=== PATIENT | female | born 1945 | race Caucasian/White ===

== ENCOUNTER 2017-08-18 11:12 | Inpatient (IN) | payer OTHER ==
[~2017-08-18] VITALS: Ht 152.4 cm; Wt 71.7 kg
[~2017-08-18 11:12] MED LIST: CORTEF5 MG PO; CRESTOR20 MG PO; EVISTA60 MG PO; OSELB75 PO; SYNTHROID50 MCG PO
[2017-08-18 11:13] VITALS: BP 118/66
[2017-08-18 11:37] LABS: ABSOLUTE NEUTROPHILS 6.8 thou/uL (1.4-8.2); BASOPHILS 0.3 % (0.0-2.0); EOSINOPHILS 3.2 % (0.0-3.0); HEMATOCRIT 43.6 % (37.0-47.0); HEMOGLOBIN 14.5 gm/dL (12.0-15.0); LYMPHOCYTES 8.7 % (24.0-44.0); MCH 30.2 pg (26.0-34.0); MCHC 33.3 g/dL (28.0-37.0); MCV 90.7 fL (80.0-100.0); MONOCYTES 6.3 % (1.0-8.0); PLATELET COUNT 243 thou/uL (150-400); POLYS 81.5 % (36.0-66.0); RBC 4.81 mil/uL (4.20-5.00); RDW 15.4 % (10.5-14.5); WBC 8.4 thou/uL (4.0-11.0)
[2017-08-18 11:50] LABS: CALCIUM 8.4 mg/dL (8.5-10.1); POTASSIUM 3.8 mmol/L (3.5-5.1)
[2017-08-18 11:56] LABS: ALBUMIN 3.3 g/dL (3.4-5.0); TOTAL BILIRUBIN 0.8 mg/dL (<0.1-1.0); TOTAL PROTEIN 7.3 g/dL (6.4-8.2)
[2017-08-18 12:21] LABS: URINE BILIRUBIN NEGATIVE (Negative); URINE BLOOD NEGATIVE (Negative); URINE CLARITY CLEAR; URINE COLOR YELLOW; URINE GLUCOSE-RANDOM* NEGATIVE (Negative); URINE KETONES NEGATIVE (Negative); URINE LEUKOCYTES NEGATIVE (Negative); URINE NITRITE NEGATIVE (Negative); URINE PROTEIN (DIPSTICK) NEGATIVE (Negative); URINE SPECIFIC GRAVITY 1.015 (1.005-1.035); URINE UROBILINOGEN 0.2 E.U./dl (0.2-1.0)
[2017-08-18 20:54] VITALS: BP 86/41
[2017-08-18 21:19] VITALS: BP 96/52
[2017-08-19 04:00] VITALS: BP 99/52
[2017-08-19 06:18] LABS: CALCIUM 7.1 mg/dL (8.5-10.1); CREATININE 0.8 mg/dL (0.6-1.0); POTASSIUM 3.7 mmol/L (3.5-5.1)
[2017-08-19 06:21] LABS: HEMATOCRIT 37.6 % (37.0-47.0); MCH 30.6 pg (26.0-34.0); MCHC 33.1 g/dL (28.0-37.0); MCV 92.6 fL (80.0-100.0); RBC 4.06 mil/uL (4.20-5.00); RDW 15.8 % (10.5-14.5); WBC 6.5 thou/uL (4.0-11.0)
[2017-08-19 06:23] LABS: ALBUMIN 2.6 g/dL (3.4-5.0); MAGNESIUM 1.9 mg/dL (1.8-2.4)
[2017-08-19 06:24] LABS: HEMOGLOBIN 12.5 gm/dL (12.0-15.0)
[2017-08-19 10:24] VITALS: BP 111/55
[2017-08-19 19:15] VITALS: BP 136/59
[2017-08-20 04:00] VITALS: BP 126/61
[2017-08-20 08:00] VITALS: BP 151/72
[2017-08-20 15:39] VITALS: BP 151/72
== END 2017-08-20 18:06 | disposition home or self-care (01) | DRG 643 ==
LOC: ER 11:12 → 4N 17:08 → EROBS 17:08 → 4N 20:54 → ENTRNSPT 08-20 17:09 → 4N 08-20 18:06
PROVIDERS: Hospitalist; Physician Assistant
PROC: B54MZZA Ultrasonography of Right Upper Extremity Veins, Guidance (ICD-10-PCS; principal; 2017-08-18)
PROC: 05HD33Z Insertion of Infusion Device into Right Cephalic Vein, Percutaneous Approach (ICD-10-PCS; principal; 2017-08-18)
DX: E27.2 Addisonian crisis (principal); E43 Unspecified severe protein-calorie malnutrition; E23.0 Hypopituitarism; B34.9 Viral infection, unspecified; E86.0 Dehydration; M81.0 Age-related osteoporosis without current pathological fracture; E03.9 Hypothyroidism, unspecified; Z79.1 Long term (current) use of non-steroidal anti-inflammatories (NSAID); Z79.899 Other long term (current) drug therapy; Z88.5 Allergy status to narcotic agent; Z90.5 Acquired absence of kidney
CPT/HCPCS: 10790; 27000

== ENCOUNTER → 2018-09-21 | Outpatient (CLI) | payer OTHER | LOC: BC 04:15 | DX: Z12.31 Encounter for screening mammogram for malignant neoplasm of breast (principal); M81.0 Age-related osteoporosis without current pathological fracture; M85.89 Other specified disorders of bone density and structure, multiple sites; Z78.0 Asymptomatic menopausal state ==

== ENCOUNTER 2019-01-03 11:24 | Inpatient (IN) | payer OTHER ==
[~2019-01-03] VITALS: Ht 152.4 cm; Wt 72.6 kg
--- NOTE | ~2019-01-03 | HC ---
[facility] [place] [address] CONSULTATION Name: JETHRO ESTRELLA Room #: 364-P [facility] IN ..#: [id number] Admission: 01/03/19 ������������������ Attend Phys: Brigette Hendricks Discharge: ������������������ Date of : 41 Report #: [id number] THIS REPORT FOR: //name// CC: Brigette Tangen Jannette DATE OF SERVICE: 01/04/2019 HISTORY OF PRESENT ILLNESS: The patient is a 73-year-old white female admitted with some slurring of speech and some left-sided weakness. She notes issues with some visual problems on the left. CT scan showed decreased attenuation right parietal area. An MRI confirmed a right temporoparietal acute/subacute infarct. We are seeing her in rehabilitation medicine consultation. 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 She had a pituitary tumor rupture in 1994. MEDICATIONS: Please see the full medication listing. This includes vitamins, herbals, and supplements per report. ALLERGIES: CODEINE. HABITS: Former tobacco smoker for 10 years, quit greater than a year ago. No history of alcohol abuse. SOCIAL HISTORY: Lives with her , house 2 steps in. Did not utilize gait aids. She is retired and could be of assistance. REVIEW OF SYSTEMS: No current complaints of chest pain, shortness of breath or abdominal discomfort. She has a history of urinary stress incontinence. She has some shoulder issues of the left shoulder with decreased range of motion with her prior surgery. PHYSICAL EXAMINATION: GENERAL: She is a pleasant, overweight 73-year-old white female, in no obvious distress. VITAL SIGNS: Last recorded temperature 98.3, pulse 91, respirations 18 and blood pressure 155/66. NEUROLOGIC: The patient is alert. Facies appeared symmetric except for the chronic right eye exophthalmus. She might have a slight depressed left nasolabial fold. She has left-sided visual field neglect to confrontation, which appears to be consistent with a homonymous hemianopsia. She does have some mild decreased left-sided attention. Reasonable strength of the left upper extremity with some mild decreased coordination. Left lower extremity appeared [address] [address] CONSULTATION Name: JETHRO ESTRELLA Room #: 364-P [facility] IN .R.#: [id number] Admission: 01/03/19 ������������������ Attend Phys: Brigette Hendricks Discharge: ������������������ Date of : 41 Report #: [id number] to have reasonable strength. She has functional range of motion of the right upper and right lower extremity, strength is a grade 4+/5, left upper extremity has decreased range of motion of that left shoulder, which is a chronic premorbid problem. Sensation does reveal decreased sensation to simultaneous stimulation in left upper and left lower extremity, although it appeared reasonably intact over the left face. ASSESSMENT: A 73-year-old white female with the following problem list: 1. Right temporoparietal acute/subacute infarct. 2. Visual field decrease with clinical evidence of a homonymous hemianopsia. 3. Left hemisensory deficit with some neglect. 4. Urinary tract infection. 5. Hyperlipidemia. 6. Adrenal insufficiency, steroids chronically. 7. Status post nephrectomy. 8. Osteoporosis. 9. Prior left total shoulder. PLAN: Neurology consulted. Therapy evaluations are underway. We would anticipate that the patient would benefit from a short acute in-hospital inpatient rehabilitation stay to work on maximizing her functional independence. Discussion with the patient's and daughters. We will be glad to follow along with you. ��������������������������������������������� ���������������������������������������� By: ��������������������������������������������� 0928 0046 Miguel A Richey MD /nt
--- NOTE | ~2019-01-03 | HC ---
[facility] [place] [address] CONSULTATION Name: JETHRO ESTRELLA Room #: 364-P [facility] IN .R.#: [id number] Admission: 01/03/19 ������������������ Attend Phys: Brigette Hendricks Discharge: ������������������ Date of : 43 Report #: [id number] THIS REPORT FOR: //name// CC: Brigette Bhatia DATE OF SERVICE: 01/03/2019 HISTORY OF PRESENT ILLNESS: This is a 73-year-old female patient who was discussed with Emergency Room physician, the hospitalist and the nurse taking care of this patient on the floor multiple times. She was seen with weakness and was noticed to have some weakness in the left upper extremity. She underwent a CT scan of the head, which demonstrated a stroke and Neurology consultation was requested. The patient herself denies any weakness and therefore it looks like she has a neglect. REVIEW OF SYSTEMS: Indicates she has no history of stroke, but she had a pituitary apoplexy for a long time and she has taken hormonal supplements since that time. She had some upper respiratory tract infection. She has adrenal insufficiency. A 14-point review of systems was carried out and this was her relevant 14-point review of systems. She also had a fall one time and she has metal in the left shoulder and both hips. She has a history of osteoporosis. PAST MEDICAL HISTORY: Negative for stroke. FAMILY HISTORY: Negative for early age stroke. SOCIAL HISTORY: She has prior history of smoking. PHYSICAL EXAMINATION: Indicates that she is alert and responsive. She can follow simple commands. Her speech to me looks unremarkable. Cranial nerve examination appears unremarkable. I do not think she has any marked hemianopsia. She gives reasonable strength on the left side. It is somewhat weaker on the left side as compared to the right side, but I do not think it is that much different. Her blood pressure is running about 152/104, respiration is 18, pulse is 97, temperature is 98.4. LABORATORY DATA: White count is somewhat high at 11.3 and urine is somewhat abnormal. I reviewed the patient's CT scan as well as MRI and this patient has finding consistent with right middle cerebral artery stroke, which will correlate with the patient's symptoms. IMPRESSION: This patient appears to have cerebrovascular accident. We saw her in Emergency Room and tried to see if she is a candidate for any intervention and unfortunately her stroke is more than 24 hours old and she is not a candidate for any intervention on the imaging study. [address] [address] CONSULTATION Name: MICHELA ESTRELLASURYA Blanco Room #: 364-P [facility] IN M.R.#: [id number] Admission: 01/03/19 ������������������ Attend Phys: Brigette Hendricks Discharge: ������������������ Date of : 41 Report #: [id number] I thought about putting her on aspirin and deep vein thrombosis prophylaxis with Lovenox. However, the problem is that this patient's MRI showed some small hemorrhage in the stroke. Therefore, we will not start the patient on aspirin or Lovenox. Main management is going to be the rehab and we need to check her extensively for any signs of atrial fibrillation or any source of embolization from the heart. We may even do MACKENZIE in this patient depending upon the echocardiogram report. More than 50 minutes of time was spent taking care of this patient today and majority of that time was spent counseling and coordinating her care. ��������������������������������������������� ���������������������������������������� By: ��������������������������������������������� 23 15 Kamari Nunes MD /nt
[2019-01-03 11:30] VITALS: BP 141/71
--- NOTE | 2019-01-03 11:41 | NUR ---
PT AMBULATED TO ROOM 2 WITH MANJULA BROWN AT THIS TIME.
[2019-01-03 12:31] LABS: ABSOLUTE NEUTROPHILS 7.1 thou/uL (1.4-8.2); BASOPHILS 0.8 % (0.0-2.0); EOSINOPHILS 2.7 % (0.0-3.0); HEMATOCRIT 44.9 % (37.0-47.0); LYMPHOCYTES 24.1 % (24.0-44.0); MCHC 33.4 g/dL (28.0-37.0); MCV 92.7 fL (80.0-100.0); MONOCYTES 9.9 % (1.0-8.0); PLATELET COUNT 259 thou/uL (150-400); POLYS 62.5 % (36.0-66.0); RBC 4.84 mil/uL (4.20-5.00); RDW 15.8 % (10.5-14.5); WBC 11.3 thou/uL (4.0-11.0)
[2019-01-03 12:32] LABS: URINE BILIRUBIN NEGATIVE (Negative); URINE BLOOD TRACE (Negative); URINE COLOR YELLOW; URINE GLUCOSE-RANDOM* NEGATIVE (Negative); URINE KETONES NEGATIVE (Negative); URINE PROTEIN (DIPSTICK) NEGATIVE (Negative); URINE UROBILINOGEN 0.2 E.U./dl (0.2-1.0)
[2019-01-03 12:39] LABS: URINE LEUKOCYTES-REFLEX 3+ (Negative); URINE NITRITE-REFLEX POSITIVE (Negative)
[2019-01-03 12:40] LABS: URINE CLARITY HAZY
[2019-01-03 12:41] LABS: AMP/METHAMP Negative (Negative); BARBITURATES Negative (Negative); BENZODIAZEPINES Negative (Negative); COCAINE Negative (Negative); METHADONE Negative (Negative); OPIATES Negative (Negative); PCP Negative (Negative)
[2019-01-03 12:50] LABS: TROPONIN-I <0.06 ng/mL (<0.06)
[2019-01-03 13:00] LABS: BACTERIA-REFLEX >30 Many /HPF (None Seen); CASTS None Seen /LPF (None Seen); SQUAMOUS None Seen /LPF (0-3); URINE RBC 0-2 Rare /HPF (0-2); URINE WBC-REFLEX 6-15 Few /HPF (0-5)
[2019-01-03 13:01] LABS: CRYSTALS None Seen /LPF (None Seen)
[2019-01-03 14:25] LABS: APTT 21.7 Seconds (24.5-32.8); INR 1.1; PROTIME 11.1 Seconds (9.3-11.4)
[2019-01-03 14:57] LABS: CALCIUM 8.5 mg/dL (8.5-10.1); CREATININE 0.9 mg/dL (0.6-1.0); POTASSIUM 3.6 mmol/L (3.5-5.1)
[2019-01-03 15:03] LABS: ALBUMIN 3.3 g/dL (3.4-5.0); MAGNESIUM 1.9 mg/dL (1.8-2.4); TOTAL BILIRUBIN 0.6 mg/dL (<0.1-1.0); TOTAL PROTEIN 7.3 g/dL (6.4-8.2)
[2019-01-03 15:16] VITALS: BP 140/77
[2019-01-03] MEDS ORDERED: CORTEF5 MG PO (15:34)
[2019-01-03] MEDS ORDERED: CENTRUM SILVER1 EAC4 PO (15:34)
[2019-01-03] MEDS ORDERED: VITAMIN D1000 UNI1 PO (15:35)
[2019-01-03] MEDS ORDERED: CALCIUM + VITA1 EACH PO (15:35)
[2019-01-03] MEDS ORDERED: CALCITONIN-SAL3.7 ML NASAL (15:38)
[2019-01-03] MEDS ORDERED: CRESTOR20 MG PO (15:39)
[2019-01-03 16:56] VITALS: BP 152/104
--- NOTE | 2019-01-03 18:41 | NUR ---
ASSUMED CARE OF PT ON ARRIVAL TO UNIT AT APPROX 1600. PT AOX4 ACCOMPANIED BY FAMILY. IN NO ACUTE DISTRESS. NIH 1 FOR NEGLECT. IV FLUIDS INFUSING PER ORDER. LOVENOX D/C'D BY PHYSICIAN DUE TO HEMMORHAGIC COMPONENT. SCD'S IN PLACE. SINUS ON TELEMETRY. WILL CONT TO MONITOR.
[2019-01-03 20:20] VITALS: BP 152/102
[2019-01-03 23:35] VITALS: BP 157/68
[2019-01-03 23:54] VITALS: BP 139/67
[2019-01-04 04:31] VITALS: BP 142/56
--- NOTE | 2019-01-04 05:19 | NUR ---
PT MAKING SLOW PROGRESS TOWARDS GOALS. NIH BRIEF SCORE 1. ONLY NOTABLE DEFICIT WAS LEFT SIDED NEGLECT. PT ABLE TO SEE MOTION IN RIGHT EYE BUT UNABLE TO SEE MOTION ON HER LEFT SIDE. PT ALSO AT TIMES UNABLE TO SEE THE FIRST WORD OF A SENTENCE. FOR EX: "THEY HEARD HIM SPEAK ON THE RADIO LAST NIGHT." PT WOULD SAY "I" HEARD HIM.....OR START WITH "HEARD." ONLY WHEN SCANNING THE PAGE BUT EITHER MOVING HER EYES OR TURNING HER HEAD WOULD SHE CORRECTLY SPEAK THE FIRST WORD OF THE SENTENCE. ALSO "CITY ATTORNEY." SHE STATED THAT SHE DOES NOT SEE THE "A" BUT DOES RECOGNIZE THAT THE WORD IS BASEBALL. SHE ALSO REPORTED THE SAME THING WITH "HUCKLEBERRY." SHE STATES THAT SHE CAN NOT SEE THE "U." TYLENOL FOR HEADACHE.
[2019-01-04 06:06] LABS: CHOLESTEROL 145 mg/dL (<200); HDL CHOLESTEROL 51 mg/dL (>40); LDL CHOLESTEROL 72 mg/dL (<100); TC:HDL 2.8 Ratio (Not establshd); TRIGLYCERIDE 111 mg/dL (<150); VLDL 22 mg/dL (<40)
--- NOTE | 2019-01-04 08:10 | EKG ---
[address] [address] ELECTROCARDIOGRAM REPORT Name: ANAHI ESTRELLACATY Blanco Room #: 364-P ADM IN M.R.#: [id number] ������������������ Admission: 01/03/19 ������������������ Attend Phys: Brigette Hendricks Discharge: ������������������ Date of : 41 Report #: [id number] ����������������������������������������������������������������� [id number] THIS REPORT FOR: //name// [facility] ED Test Date: 2019-01-03 Test Time: 12:06:01 Pat Name: JETHRO ESTRELLA Department: Room: 364 Gender: F Award Machine Operator: MINE : 1945 Requested By: Israel Duran Order Number: [id number] MD: Alonso Brewer Measurements Intervals [place] Rate: 88 P: 50 TN: 133 QRS: 2 QRSD: 100 T: 28 QT: 378 QTc: 458 Interpretive Statements Sinus rhythm Inferior infarct, old Anteroseptal infarct, age indeterminate Compared to ECG 07/13/2017 16:21:19 Myocardial infarct finding now present Sinus tachycardia no longer present Electronically Signed On 01-04-2019 8:10:01 CDT by Alonso Brewer [email or web address] ��������������������������������������������� <ELECTRONICALLY SIGNED> ���������������������������������������� By: Alonso Brewer MD ��������������������������������������������� 01/04/19 0810 1206 1206 Alonso Brewer MD /EPI
[2019-01-04 08:11] VITALS: BP 155/66
--- NOTE | 2019-01-04 11:06 | 2DMMODE ---
[facility] [place] [address] 2 D/M-MODE ECHOCARDIOGRAM Name: JETHRO ESTRELLA Room #: 364-P ADM IN .R.#: [id number] ������������� Admission: 01/03/19 ������������� Attend Phys: Brigette Becerril Discharge: ��� ������������� ��� Date of : 41 Date of Service: 01/04/19 1106 �� Report #: [id number] �������� ��������������������������������������������[id number] THIS REPORT FOR: //name// APPROVED REPORT Study performed: 01/04/2019 10:03:38 EXAM: Comprehensive 2D, Doppler, and color-flow Echocardiogram Patient Location: Bedside Room #: 364 Status: routine BSA: 1.70 HR: 95 bpm BP: 155/66 mmHg Rhythm: NSR Other Information Study Quality: Adequate Indications CVA/TIA Hypertension/HDD Echo Enhancing Agent Indication: Rule out Shunt Agent(s) / Amount(s) Used: Agitated Saline 7 cc 2D Dimensions RVDd: 29.99 mm IVSd: 10.49 (7-11mm) LVOT Diam: 17.85 (18-24mm) LVDd: 40.96 mm PWd: 10.55 (7-11mm) Ascending Ao: 25.19 (22-36mm) LVDs: 26.76 (25-40mm) Aortic Root: 33.84 mm Volumes Left Atrial Volume (Systole) Single Plane 4CH: 33.42 mL Single Plane 2CH: 32.70 mL LA ESV Index: 21.00 mL/m2 Aortic Valve AoV Peak Cb.: 1.68 m/s AO Peak Gr.: 11.29 mmHg LVOT Max P.87 mmHg LVOT Max V: 1.10 m/s DALIA Vmax: 1.64 cm2 [facility] [place] [address] [place] [address] 2 D/M-MODE ECHOCARDIOGRAM Name: JETHRO ESTRELLA Room #: 364-P [facility]#: [id number] ������������� Admission: 01/03/19 ������������� Attend Phys: Brigette Becerril Discharge: ��� ������������� ��� Date of : 41 Date of Service: 01/04/19 1106 �� Report #: [id number] �������� ��������������������������������������������[id number] Mitral Valve E/A Ratio: 1.0 MV Decel. Time: 138.54 ms MV E Max Cb.: 1.03 m/s MV A Cb.: 1.01 m/s MV PHT: 40.18 ms IVRT: 69.20 ms Pulmonary Valve PV Peak Cb.: 0.97 m/s PV Peak Gr.: 3.78 mmHg Pulmonary Vein P Vein S: 0.60 m/s P Vein A: 0.32 m/s P Vein D: 0.51 m/s P Vein A Dur.: 106.1 msec P Vein S/D Ratio: 1.18 Left Ventricle The left ventricle is normal size. There is normal LV segmental wall motion. There is normal left ventricular wall thickness. Left ventricular systolic function is normal. The left ventricular ejection fraction is within the normal range. LVEF is 60-65%. The left ventricular diastolic function is normal. Right Ventricle The right ventricle is normal size. The right ventricular systolic function is normal. Atria The left atrium size is normal. Interatrial septum is intact without evidence of ASD or PFO. The right atrium size is normal. Aortic Valve Aortic valve is not well visualized. Appears david Trace aortic regurgitation. There is no aortic valvular stenosis. Mitral Valve The mitral valve is normal in structure. Trace mitral regurgitation. No evidence of mitral valve stenosis. Tricuspid Valve The tricuspid valve is normal in structure. There is no tricuspid valve regurgitation noted. Pulmonic Valve The pulmonary valve is normal in structure. There is no pulmonic [place] [id number] 2 D/M-MODE ECHOCARDIOGRAM Name: JETHRO ESTRELLA Room #: 364-P [facility] IN [facility]#: [id number] ������������� Admission: 01/03/19 ������������� Attend Phys: Brigette Becerril Discharge: ��� ������������� ��� Date of : 41 Date of Service: 01/04/19 1106 �� Report #: [id number] �������� ��������������������������������������������[id number] valvular regurgitation. Great Vessels The aortic root is normal in size. IVC is not well visualized. Pericardium There is no pericardial effusion. <Conclusion> The left ventricle is normal size. LVEF is 60-65%. Aortic valve is not well visualized. Appears david Trace aortic regurgitation. The mitral valve is normal in structure. Trace mitral regurgitation. The tricuspid valve is normal in structure. The pulmonary valve is normal in structure. There is no pericardial effusion. Interatrial septum is intact without evidence of ASD or PFO. ��������������������������������������������� <ELECTRONICALLY SIGNED> ���������������������������������������� By: Antonio Ponce MD ��������������������������������������������� 01/04/19 1106 1106 1106 Antonio Ponce MD /INF
--- NOTE | 2019-01-04 13:06 | NUR ---
ASSESSMENT: CM REVIEWED CHART AND MET WITH PATIENT AT THE BEDSIDE. PT WAS ADMITTED WITH CVA. PT REPORTS THAT SHE LIVES IN A HOUSE WITH HER . PT REPORTS TWO STEPS TO ENTER WITH A HANDRAIL. PT REPORTS ONCE INSIDE SHE HAS A SUNKEN LIVING ROOM WHERE THERE IS ONE STEP DOWN TO GET INTO IT AND ONE STEP UP TO GET OUT OF IT. PT REPORTS ALL HER NEEDS ARE ON THE MAIN LEVEL BUT SHE DOES HAVE A FINISHED BASEMENT SHE GOES INTO SOMETIMES. PT REPORTS SHE HAS ABOUT 14 STEPS WITH HANDRAILS TO THE BASEMENT. PT REPORTS HAVING A REGULAR CANE AND FOUR PRONG CANE AT HOME. PT STATES SHE HAS BEEN TO [facility] IN THE PAST BUT STATES SHE HAS NOT HAD HH. PTS DAUGHTERS ARE PRESENT. 5N CONSULT HAS BEEN PLACED. PT REPORTS SHE PREFERS TO GO TO [facility] OVER [facility] BUT WANTS TO FURTHER DISCUSS WITH HER FAMILY. CM WILL CONTINUE TO FOLLOW TO ASSIST NEEDE.D
[2019-01-04 16:51] VITALS: BP 125/53
--- NOTE | 2019-01-04 17:37 | NUR ---
PATIENT HAS DONE VERY WELL TODAY. IS UP WITH WALKER WITH MINIMAL ASSIST. FAMILY HERE WITH PATIENT THROUGH THE DAY. RESIDENT AWAITING VARIOUS CONSULTS. SHE WILL LIKELY GO HOME TOMORROW. HAD A CUP OF COFFEE. EDUCATED ON NEED TO LIMIT CAFFIEN INTAKE SHE STATES THAT SHE DRINKS THREE POTS OF COFFEE AT HOME. WILL CONT WITH PLAN OF CARE.
[2019-01-04 19:25] VITALS: BP 140/65
[2019-01-05 04:00] VITALS: BP 130/67
--- NOTE | 2019-01-05 07:19 | HC ---
[facility] [place] [address] CONSULTATION Name: JETHRO ESTRELLA Room #: 364-P [facility] IN .R.#: [id number] Admission: 01/03/19 ������������������ Attend Phys: rBigette Hendricks Discharge: ������������������ Date of : 41 Report #: [id number] THIS REPORT FOR: //name// CC: Brigette Tangen Jannette DATE OF SERVICE: 01/04/2019 HISTORY OF PRESENT ILLNESS: The patient came into the Emergency Department yesterday after family stated she was having some issues with slurred speech, visual field disturbances and general confusion that started on Wednesday. The patient describes it as starting on Wednesday; however, was very confused about the timing of events. Does also complain of some previous left arm numbness, which has subsided. PAST MEDICAL HISTORY: She has had a history of pituitary tumor rupture in 1994, hypothyroidism, stress incontinence, osteoporosis. PAST SURGICAL HISTORY: Left shoulder surgery and left femur fracture in 2008, right femur fracture in 2002, nephrectomy at age 14. SOCIAL HISTORY: She lives at home with her , has 3 children. Smoked 30 years ago, approximately a pack a week. Denies any alcohol. ALLERGIES: CODEINE. HOME MEDICATIONS: Crestor 20 mg daily, calcium with vitamin D daily, hydrocortisone 10 mg daily and then also takes another 5 mg at bedtime, Evista 60 mg daily, calcitonin (salmon) one spray nasal daily, Synthroid 50 mcg daily, vitamin D 2000 units daily, Centrum Silver 1 tablet daily. REVIEW OF SYSTEMS: The patient denies any difficulty with fatigue or sleeping. Denies headache, vertigo, hearing loss. Denies shortness of breath, dyspnea on exertion, orthopnea, cough or wheeze. Denies chest pain, jaw pain, arm pain or murmurs. Denies any skin rashes, psoriasis or eczema. Denies cold feet, night sweats, or lack of concentration. Denies nausea, vomiting, diarrhea or constipation. Denies any urinary frequency, bloody urine or painful urination. Denies any seizures or neuropathy. Did, however, have previous numbness to left arm and states that she has loss of peripheral vision. Psychiatric: Denies any hallucinations; however, is very confused at times. Denies depression or anxiety. Musculoskeletal: Denies joint pain, swelling, stiffness or leg claudication. Immunologic: Denies lupus, rheumatoid arthritis or celiac disease. VITAL SIGNS: Blood pressure is 155/66, heart rate is 91 and sinus rhythm. Temperature is 36.8, respiratory rate is 18, O2 sat is 95% [place] [address] CONSULTATION Name: JETHRO ESTRELLA Room #: 364-P [facility] IN ..#: [id number] Admission: 01/03/19 ������������������ Attend Phys: Brigette Hendricks Discharge: ������������������ Date of : 41 Report #: [id number] patient weighs 72.5 kilograms. LABORATORY DATA: White blood cell count 11.3, hemoglobin 15.0, hematocrit 44.9 and platelet 259. Chemistry: Sodium 141, potassium 3.6, chloride is 104, carbon dioxide 25, BUN is 10, creatinine is 0.9 with an estimated GFR of 61. She has nitrites positive, leukocyte esterase +3, white blood cell counts 6-15, urine bacteria many, and no squamous epithelial cells seen indicative of UTI. Toxicology negative. IMAGING: The patient had imaging. Head CT showed atrophy and mild microvascular changes. No evidence of acute intracranial hemorrhage or mass effect. There is a subtle area of decreased attenuation in the right parietal lobe white matter, which may represent an acute infarct and developing acute or subacute right middle cerebral artery infarct in the region of the right parietal lobe present. Head MRI and MRA carotid without contrast, moderate motion artifact. There is also significant swallowing artifact at the lower cervical region. No evidence of significant stenosis or narrowing. Carotid Doppler study: Moderate plaquing in the proximal right internal carotid artery and bulb causing 60-70% stenosis by shipman-scale and velocity criteria. MRI/MRA of the brain shows impression: Normal MR angiogram of the [place]. Noted patient had a transthoracic echocardiogram done. Conclusion: The left ventricle is normal size. Left ejection fraction of 60-65%. Aortic valve was not well visualized, but appears grossly intact. Trace aortic regurg noted. The mitral valve is normal in structure, trace mitral regurgitation. Tricuspid valve is normal in structure. The pulmonary valve is normal in structure. There is no pericardial effusion and interatrial septum is intact without evidence of ASD or PFO. PHYSICAL EXAMINATION: GENERAL: She is a well-developed, well-nourished, slightly obese, does have a little slight hoarseness to her speech; however, did not notice any slurring or any aphasia at the point of evaluation. However, some mild confusion of timing of events. HEENT: Her eyes do not appear to be completely conjugated. She is normocephalic. Did not notice any nystagmus. CARDIOVASCULAR: Shows regular rate and rhythm, S1, S2. LUNGS: Clear and equal. ABDOMEN: Soft, nontender. NEUROLOGIC: The patient is alert and oriented to event and person; however, slightly confused about timing. Labs as stated above. ASSESSMENT: Right hemispheric cerebrovascular accident as described above. The patient has a history of nephrectomy; however, her kidney functions at this [facility] [address] [place] [address] CONSULTATION Name: JETHRO ESTRELLA Room #: 364-P ADM IN .R.#: [id number] Admission: 01/03/19 ������������������ Attend Phys: Brigette Hendricks Discharge: ������������������ Date of : 41 Report #: [id number] point with the one kidney she has is within normal parameters. Creatinine is 0.9. Our recommendation would be to proceed onward with a CTA of the head and neck to get a better evaluation of the carotid, feel that the kidney functions with the IV contrast would be more than adequate and would be happy to give further recommendations based on the study of the CTA head and neck. ��������������������������������������������� <ELECTRONICALLY SIGNED> ���������������������������������������� By: RADHA Luke ��������������������������������������������� 01/05/19 0719 1359 0647 RADHA Luke /cliff
--- NOTE | 2019-01-05 07:29 | NUR ---
SLEPT MOST OF SHIFT WITH BY BEDSIDE. UP TO BATHROOM WITH STEADY GAIT. ASSISTS WITH EVERYTHING. STATES HE TAKES CARE OF HIS . WORKING ON GOALS AND PLAN OF CARE FOR NOC. PATIENT IS HAVING CTA TODAY AND CALLED DR AUGUSTIN AND DR PARRA TO CLARIFY. DR ROSALES IS NOT HAVING THIS TEST. PROGRESSING SLOWLY TOWARDS TRANSFER GOALS TO REHAB. CONTINUE TO ASSES CLOESLY.
[2019-01-05 07:41] VITALS: BP 132/63
[2019-01-05 11:25] VITALS: BP 115/55
[2019-01-05 15:24] VITALS: BP 136/52
[2019-01-05 20:30] VITALS: BP 132/49
[2019-01-06 04:00] VITALS: BP 147/68
[2019-01-06 05:34] LABS: CALCIUM 8.2 mg/dL (8.5-10.1); CREATININE 0.8 mg/dL (0.6-1.0); PHOSPHORUS 3.4 mg/dL (2.5-4.9); POTASSIUM 3.5 mmol/L (3.5-5.1)
--- NOTE | 2019-01-06 08:01 | NUR ---
PATIENT IS ALERT AND ORIENTED. PATIENT IS UP AD LELIA. PATIENT IS NSR ON TELE. PATIENT NIH IS 3 DUE TO LT SIDED VISUAL NEGLECT. PATIENTS LBM WAS THE 31ST. PATIENT IS PENDING TRANSFER TO OR FOR SURGERY. PATIENT IS RESTING COMFORTABLY IN BED. WCM. PATIENT IS PROGRESSING TO GOALS
[2019-01-06] MEDS ORDERED: CEFUROXIME250 MG PO (09:35)
--- NOTE | 2019-01-06 10:45 | NUR ---
on-going assessment: CM REVIEWED CHART AND MET WITH PATIENT AND HER AT THE BEDSIDE. PT REPORTS THAT SHE IS AGREEABLE TO GO TO [facility] TODAY. CM NOTIFIED ATTENDING THAT PATIENT IS WANTING TO GO TO [facility]. PLANS ARE FOR PATIENT TO DISCHARGE TODAY. PASTOR SPOKE WITH [facility] WHO STATES THEY CAN ACCEPT HER TODAY. BEDSIDE RN AWARE OF THE NUMBER TO CALL REPORT.
[2019-01-06 11:19] VITALS: BP 134/59
--- NOTE | 2019-01-06 15:00 | NUR ---
REPORT CALLED TO DON/RN ON [facility]. PT AND FAMILY AWARE OF TRANSFER LATER THIS AFTERNOON. PT W/O CO PAIN, SOA AND N/V AT THIS TIME. PT W/ CO DIARRHEA AND ATRIBUTES IT TO HER MEDICATIONS AND ANTIBIOTIC TX.
--- NOTE | 2019-01-06 16:12 | NUR ---
iv access dc'd. tele dc'd. discharge paperwork gone through w/ pt and spouse. script given x1 w/ education literature. all belongings gathered by pt and her family members. pt informed of mrsa positive status. Don/[facility] notified of mrsa positive status too.
== END 2019-01-06 16:19 | DRG 65 ==
LOC: ER 11:24 → EROBS 14:07 → 3W 14:07
PROVIDERS: Emergency Medicine; ADMIT Hospitalist
DX: I63.9 Cerebral infarction, unspecified (principal); N39.0 Urinary tract infection, site not specified; E27.40 Unspecified adrenocortical insufficiency; G81.94 Hemiplegia, unspecified affecting left nondominant side; E03.9 Hypothyroidism, unspecified; M81.0 Age-related osteoporosis without current pathological fracture; E78.5 Hyperlipidemia, unspecified; F03.90 Unspecified dementia, unspecified severity, without behavioral disturbance, psychotic disturbance, mood disturbance, and anxiety; I65.22 Occlusion and stenosis of left carotid artery; Z79.52 Long term (current) use of systemic steroids; Z79.899 Other long term (current) drug therapy; Z90.5 Acquired absence of kidney; Z88.6 Allergy status to analgesic agent
CPT/HCPCS: 10879

== ENCOUNTER 2019-01-05 10:38 | Inpatient (IN) | payer OTHER ==
[~2019-01-05] VITALS: Ht 149.9 cm; Wt 78.9 kg
--- NOTE | ~2019-01-05 | H ---
[facility] [place] [address] HISTORY AND PHYSICAL Name: JETHRO ESTRELLA Room #: 506-1 ADM IN M.R.#: [id number] Admission: 01/06/19 ������������������ Attend Phys: Miguel A Richey MD Discharge: ������������������ Date of : 43 Report #: [id number] THIS REPORT FOR: //name// CC: Miguel A Bhatia DATE OF SERVICE: 01/06/2019 HISTORY AND PHYSICAL AND POST-ADMISSION PHYSICIAN EVALUATION HISTORY OF PRESENT ILLNESS: The patient is a 73-year-old white female originally admitted on 01/04/2019 with slurring of speech and some left-sided weakness. She is noted to have visual field problems on the left. MRI confirmed a right temporoparietal acute/subacute infarct. Followup MRI noted some hemorrhagic transformation. The patient was followed by Neurology and also seen by Vascular Surgery and Cardiology. Workup was consistent with a right internal carotid artery stenosis. The plan is to hold off on use of Plavix as per Neurology. She will then need to be scheduled for intervention on her carotid artery at a later date as per Vascular Surgery. She does have left visual field deficits with some left-sided neglect and definite functional decrease from her premorbid level and has now been admitted for acute in-hospital inpatient rehabilitation. PAST MEDICAL HISTORY: Left shoulder surgery as well as a left femur fracture in 2008 and a right femur fracture in 2002, history of hypothyroidism, steroid dependent, nephrectomy at age 14, stress incontinence, osteoporosis, and pituitary rupture in 1994. MEDICATIONS: Please see the full medication listing. This includes vitamins, herbals, and supplements per report. ALLERGIES: CODEINE. HABITS: Former tobacco smoker, 10 years, quit greater than a year ago. No history of alcohol abuse. SOCIAL HISTORY: Lives with her , house 2 steps in, did not utilize gait aids. She is retired and could be of assistance. REVIEW OF SYSTEMS: The patient was seen earlier. She did not have any complaints of chest pain, shortness of breath or abdominal discomfort. She has a history of premorbid incontinence. She has had a prior left shoulder surgery and has decreased range of motion with this. PHYSICAL EXAMINATION: GENERAL: The patient was seen earlier. [place] [address] HISTORY AND PHYSICAL Name: JETHRO ESTRELLA Room #: 506-1 [facility] IN [facility]#: [id number] Admission: 01/06/19 ������������������ Attend Phys: Miguel A Richey MD Discharge: ������������������ Date of : 43 Report #: [id number] overweight 73-year-old white female. VITAL SIGNS: Last recorded temperature 97.9, pulse 86, respirations 18 and blood pressure 145/56. NEUROLOGIC: Alert and pleasant. 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 She has a definite left visual field neglect to confrontation, which appears consistent with homonymous hemianopsia. She has some decreased left-sided attention. CHEST: Sounded clear to auscultation. CARDIOVASCULAR: Regular rate and rhythm. ABDOMEN: Bowel sounds positive, nontender. GENITOURINARY AND RECTAL: Deferred. EXTREMITIES: She has functional range of motion of the right upper extremity without obvious focal weakness. DTRs are trace to 1. Right lower extremity without obvious focal weakness. She has some mild decreased strength and does have decreased coordination of that left upper extremity with strength probably grade 4 to 4-/5. Left lower extremity appeared to have reasonable strength. Again, she has some coordination difficulties and will tend to use her right side when asked to do something rather than her left. Sensation does reveal decreased sensation to simultaneous stimulation in the left upper and left lower extremity, although it is reasonably intact over the face on the left. There is no calf swelling. She needs min assist with basic functional mobility skills and has decreased left-sided attention. ASSESSMENT: A 73-year-old white female with following problems: 1. Right temporoparietal subacute infarct. She has had some hemorrhagic conversion noted and holding off on these clopidogrel until this coming Wednesday as per Neurology. 2. Right carotid stenosis. Vascular Surgery is following and will need follow up for this as she completes her rehabilitation. 3. Left hemisensory deficit with some neglect. 4. Hyperlipidemia. 5. Urinary tract infection. 6. Adrenal insufficiency, on steroids chronically. The family notes that the dose is atypically increase some when she is under increased stress. 7. Status post nephrectomy. 8. Prior left total shoulder. She does have decreased range of motion of that left shoulder that was noted during her examination. PLAN: The patient is admitted for acute in-hospital inpatient rehabilitation. From a post-admission physician evaluation perspective, there are no relevant changes since the preadmission screening. Please see the review of prior and current medical and functional conditions and comorbidities. Please see the patient's previous and current functional status. As far as risk of complications, the patient has multiple medical comorbidities as noted above. Initial plan of care involves the interdisciplinary acute inpatient [facility] [address] [place] [address] HISTORY AND PHYSICAL Name: JETHRO ESTRELLA Room #: 506-1 ADM IN ..#: [id number] Admission: 01/06/19 ������������������ Attend Phys: Miguel A Richey MD Discharge: ������������������ Date of : 43 Report #: [id number] rehabilitation program with goal of maximizing the patient's functional independence, so she can hopefully return back to her prior living situation. Measurable functional goals would be for the patient to become modified independent with transfers, mobility, ADLs as well as to improve as far as her overall visual perceptual abilities so she can return back to the home setting. Prognosis is reasonably good. Estimated length of stay probably at least 7-14 days pending progress. Potential barriers would include her multiple medical comorbidities and decreased functional status. The patient meets diagnostic criteria for an acute in-hospital inpatient rehabilitation stay. She meets the medical necessity criteria. We will have the multiple lending consultant physicians continue to follow up. She does have the tolerance for therapies and has appropriate discharge goals back to the home setting. ��������������������������������������������� ���������������������������������������� By: ��������������������������������������������� [id number] Miguel A Richey MD /nt
--- NOTE | ~2019-01-05 | PLAN ---
[facility] [place] [address] REHAB UNIT PLAN OF CARE Name: JETHRO ESTRELLA Room #: 506-1 ADM IN M.R.#: [id number] Admission: 01/06/19 ������������������ Attend Phys: Miguel A Richey MD Discharge: ������������������ Date of : 43 Report #: [id number] THIS REPORT FOR: //name// CC: Miguel A Bhatia DATE OF SERVICE: 01/09/2019 PROGRESS NOTE AND OVERALL PLAN OF CARE SUBJECTIVE: The patient is seen back today in followup. The patient is in no distress. Temperature 36.7, pulse 88, respirations 18, blood pressure 138/62. She is pleasant. She has the left homonymous hemianopsia with some left-sided neglect. She is working in therapies with transfers, contact guard, gait min assist 200 feet with a front-wheeled walker. In occupational therapy, lower body dressing is min assist. She does have mild comprehensive deficits. Mild cognitive deficits. ASSESSMENT: 1. Right temporoparietal subacute infarct with some hemorrhagic conversion. Holding off on the clopidogrel, as per Neurology. 2. Right carotid stenosis. Vascular Surgery is involved. 3. Left hemisensory deficit with some neglect. 4. Hyperlipidemia. 5. Urinary tract infection. 6. Adrenal insufficiency, on steroids chronically. 7. Status post nephrectomy. 8. Prior left total shoulder replacement. PLAN: The overall plan of care is based on the preadmission screen, post-admission physician evaluation and information garnered from therapy assessments. 1. Estimated length of stay is probably at least 7-14 days, pending progress. 2. Medical prognosis is reasonably good. 3. Anticipated interventions includes the interdisciplinary acute inpatient rehabilitation program with the goal of maximizing the patient's functional independence, so she can hopefully return back to her prior living situation. 4. Anticipated functional outcomes would be for the patient to become modified independent with transfers, mobility, ADLs that she can hopefully return back to her prior living situation. 5. Discharge destination would be back home with her . 6. Expected therapy by discipline includes PT, OT and speech 1 hour per day [address] [address] REHAB UNIT PLAN OF CARE Name: JETHRO ESTRELLA Room #: 506-1 [facility] IN ..#: [id number] Admission: 01/06/19 ������������������ Attend Phys: Miguel A Richey MD Discharge: ������������������ Date of : 43 Report #: [id number] each five days a week throughout the duration of the acute inpatient rehabilitation stay. ��������������������������������������������� ���������������������������������������� By: ��������������������������������������������� [id number] Miguel A Richey MD /nt
[~2019-01-05 10:38] MED LIST changes: +CALCITONIN-SAL3.7 ML NASAL; +CALCIUM + VITA1 EACH PO; +CENTRUM SILVER1 EAC4 PO; +VITAMIN D1000 UNI1 PO
[2019-01-06] MEDS ORDERED: CEFUROXIME250 MG PO (09:35)
--- NOTE | 2019-01-06 14:16 | NUR ---
chart review, pt going to acute rehab today. pt up in beds, daughter ibrahima, brian and friend in room. offered to come back later since had company " no it is fine"/pt and brian. intro to cm, dcp, team meetings, transition of care and hh. " does everyone need hh?"/pt. education that some pt have outpt rehab needs or no needs at dc. pt and family reported " live in house with , completely independent and then some prior to hospital admission. 2 steps with hand rail to enter home. 1 step into sunken living room. 14 steps with hand rail to basement. manage own medication. have cane and 4 prong care. have toilet riser that don't use, shower bench lent to best friend who very ill. cooks, have my own small my pillow that i am taking up to rehab with me. have got new taller toilets, have walker. never driven. no home health in past"/opal. noted pt topic would change in middle of conversation. pt is a & o x 3, and able to make her needs know. will cont following as needed for dc needs.
--- NOTE | 2019-01-06 16:45 | NUR ---
1630 ADMITTED TO ROOM 506. PATIENT IS ALERT AND ORIENTED X4. PATIENT VENTURA'S, STRETCH BOX TENDER ARE EQUAL. LUNGS ARE CLEAR. ABD IS SOFT WITH BSX4. UP WITH GAIT AND ASSIST OF 1 STAFF. PATIENT VOIDS SABIHA COLORED URINE. FALL AND SAFETY PROTOCOLS IN PLACE. DENIES ANY PAIN AT THIS TIME. EVALS FOR P.T. , O.T. S.T. IN THE A.M. ENCOURAGE PATIENT TO CALL FOR ASSISTANCE. WILL CONTINUE TO MONITER. FAMILY AT BEDSIDE.
[2019-01-06 16:48] VITALS: BP 137/96
[2019-01-06 19:31] VITALS: BP 145/56
--- NOTE | 2019-01-07 02:27 | NUR ---
PT ALERT AND ORIENTED X 4. AMB TO BR WITH WALKER AND ASSIST X 1. C/O PAIN IN NECK AND LEFT SHOULDER. ROCHELLE CRANDALL NP CALLED WITH ORDERS RECEIVED. NON-PRODUCTIVE COUGH NOTED. BED ALARM ON FOR SAFETY. PT APPEARS TO BE SLEEPING ON HOURLY ROUNDS.
[2019-01-07 06:56] LABS: CALCIUM 8.6 mg/dL (8.5-10.1); CREATININE 0.9 mg/dL (0.6-1.0); POTASSIUM 3.5 mmol/L (3.5-5.1)
[2019-01-07 07:30] VITALS: BP 141/64
--- NOTE | 2019-01-07 19:10 | NUR ---
ASSUMED CARE OF PT AT 0715. PATIENT IS A&OX4 AND VITAL SIGNS ARE STABLE. PATIENT PARTICIPATED IN SCHEDULED THERAPIES. PATIENT TRANSFERS WITH 1 PERSON ASSISTANCE USING GAIT BELT AND WALKER, TAKES MEDICAITONS WHOLE WITH WATER. CONTACT ISOLATION CONTINUED FOR MRSA OF NARES. FALL PRECAUTIONS IN PLACE AND NURSING WILL CONTINUE TO MONITOR.
[2019-01-07 19:50] VITALS: BP 149/61
--- NOTE | 2019-01-08 00:49 | NUR ---
PT ASSESSMENT COMPLETED AND VSS. MEDS GIVEN ORDERED AND WELL TOLERATED. FALL PRECAUTIONS IN PLACE. UP TO THE BATHROOM WITH ASST/GAIT/WALKER. STEADY. IMPULSIVE AND GETS UP WITHOUT CALLING. TALKED WITH PT ABOUT CALLING BEFORE GETTING UP. SLEEPING WELL. WILL CONTINUE TO MONITOR FREQUENTLY.
[2019-01-08 07:20] VITALS: BP 128/67
--- NOTE | 2019-01-08 11:39 | NUR ---
ASSUMED CARE AT 0700. PATIENT IS ALERT AND ORIENTED, BUT FORGETFUL. PATIENT VENTURA'S, OSTRICH FARMER ARE EQUAL. UP TO THE BATHROOM WITH GAIT BELT AND WALKER. UP ON SIDE OF BED FOR BREAKFAST. FALL AND SAFETY PROTOCOLS IN PLACE. DENIES ANY PAIN CONTINUES TO PROGRESS TOWARDS D/C GOALS. PATIENT REMAINS IN ISOLATION FOR MRSA OF THE NARES. WILL CONTINUE TO MONITER.
[2019-01-08 19:56] VITALS: BP 138/62
--- NOTE | 2019-01-09 04:43 | NUR ---
UP TO TOILET STEADY WITH SBA, GAITBELT, AND WALKER. SAT AT THE EDGE OF BED LAST EVENING WITH DAUGHTER AT BEDSIDE. DAUGHTER STAYED THE NIGHT AND WAS HELPFUL COMPENSATING FOR PATIENT'S MEMORY DEFECITS. HOME MED DOSE OF CRESTOR VERIFIED AND LIPITOR DOSE DECREASED FROM 80 TO 20, DAUGHTER INFORMED THAT WE CAN GIVE CRESTOR IF THEY BRING IT IN AND WE HAVE PHARMACY ID IT.
[2019-01-09 07:15] VITALS: BP 135/55
--- NOTE | 2019-01-09 12:31 | NUR ---
ASSUMED CARE OF PATIENT AT 0715. PATIENT IS A&OX4 AND VITAL SIGNS ARE STABLE. PATIENT HAS SIGNIFICANT VISUAL IMPAREMENT IN THE RIGHT EYE. DAUGHTER AT BEDSIDE REPORTS CONCERNS ABOUT DISCHARGE AND TREATMENT PLAN, EDUCATION GIVEN ON DEMAND BY THIS NURSE TO FAMILY ABOUT CARE PLAN AND OTHER QUESITONS REGUARDING DISCHARGE. CARDIAC STRESS TEST ORDERED FOR THIS SHIFT. IV TEAM PLACED IV IN RIGHT AC. PATIENT HAS NO REPORTS OF PAIN. PATIENT TAKES MEDICAITONS WHOLE WITH THIN LIQUIDS. PATIENT TRANSFERS AND AMBULATES WITH 1 PERSON ASSISTANCE WITH GAIT BELT AND WALKER. PATIENT PARTICIPATED IN SCHEDULED THERAPIES. FALL PRECAUTIONS IN PLACE AND NURSING WILL CONTINUE TO MONITOR.
--- NOTE | 2019-01-09 13:45 | NUR ---
cm asked by pt daughter to talk, family reported " not sure memory test and jewelry go together. might take all moms jewelry home if she will let me"/daughter. education on not having personal belongings here like jewelry home unless someone is adamant to keep here. active listened and education that information will be passed on to bedside, nurse unite ethylbenzene cracking supervisor and speech therapy.
--- NOTE | 2019-01-09 14:37 | NUR ---
DURING LUNCH PATIENT'S REPORTED TO THIS NURSE THAT THE SPEECH THERAPIST HAD "PUT PATIENT'S RING IN HER POCKET". SPEECH THERAPIST IMMEDIATLY CONTACTED BY NURSE DURING WHICH TIME DAUGHTER CAME TO NURSES STATION AND TOLD THIS NURSE THAT THE SPEECH THERAPIST HAD "TAKEN" THE PATIENT'S RING. NURSE INFORMED THE DAUGHTER THAT THE SPEECH THERAPIST WAS ON HER WAY UP TO THE NURSES STATION. SPEECH THERAPIST IMMEDIATELY CAME TO THE UNIT AND THEN WENT TO THE PATIENT'S ROOM. FAMILY WAS TOLD ABOUT THE NATURE OF THE MEMORY TEST AND THAT THE PATIENT WAS ASKED FOR "ANY ITEM" AND THAT THE PATINET HAD VOLUNTARILY GIVEN THE RING PART OF THE TEST. SPEECH THERAPIST CONCLUDED THE TEST ROUTENLY BY ASKING THE PATIENT WHERE SHE HAD PLACED THE RING AND THEN RETURNED THE RING. FAMILY BECAME UPSET ABOUT THE TEST AND NURSING AND SPEECH THERAPY CONTINUED TO EXPLAIN THE TEST WITH FAMILY MEMBERS AND REITERATED THAT THE THERAPIST WOULD NOT USE JEWELY IN THEIR THERAPY AND THAT THE FAMILY SHOULD MAKE ARRANGEMENTS TO REMOVE VALUABLES FROM THE UNIT AND TAKE HOME.
[2019-01-09 19:41] VITALS: BP 138/64
--- NOTE | 2019-01-10 02:16 | NUR ---
PATIENT WISHES SHE DID NOT HAVE TO HAVE THE BED ALARM ON, ALARM TONE INDIVIDUALIZED IN AN ATTEMPT TO MAKE IT LESS OFFENSIVE TO HER EAR, AND REMINDED TO CALL BEFORE GETTING UP IN ORDER FOR US TO ASSIST HER AND AVOID THE ALARM GOING OFF. HAS SOME LEFT SIDED WEAKNESS AND NEGLEGT AT THIS TIME.
--- NOTE | 2019-01-10 06:26 | HC ---
[facility] [place] [address] CONSULTATION Name: JETHRO ESTRELLA Room #: 506-1 [facility] IN M.R.#: [id number] Admission: 01/06/19 ������������������ Attend Phys: Miguel A Richey MD Discharge: ������������������ Date of : 43 Report #: [id number] THIS REPORT FOR: //name// CC: Miguel A Bhatia DATE OF SERVICE: 01/08/2019 NEUROBEHAVIORAL STATUS EXAMINATION ATTENDING PHYSICIAN: Miguel A Richey MD DENTURE PROCESSOR: Omar Connors, PhD CLINICAL PRESENTATION: The patient is a 73-year-old female admitted to the rehabilitation unit at [facility] for an inpatient rehabilitation program subsequent to deficits from a right temporoparietal infarction. The patient was at her home and experiencing problems with slurred speech and left neglect when hospitalization was initiated. An MRI revealed an acute subacute infarction with a followup MRI showing a hemorrhagic transformation. Her diagnoses on the rehabilitation unit included a right temporoparietal subacute infarction with some hemorrhagic conversion, right carotid stenosis, left yeyo sensory deficit with some neglect, hyperlipidemia, urinary tract infection, adrenal insufficiency on steroids chronically, status post nephrectomy, prior left total shoulder. A complete description of her medical condition and history can be found in her medical records. Neuropsychological consultation was requested to provide assistance in the assessment of cognitive and emotional status and to provide recommendations and services. Prior to this most recent admission, she was living independently in her own home with her . She has 2 children. The patient is a high school graduate. She has never driven and has not worked outside the home. She is reported to have been independent with instrumental activities of daily living. It should be noted that her daughters have indicated that the patient's has early signs of dementia and has been getting lost while driving. Additionally, her has been the victim of financial scams, one of which included believing that he had won a large sum of money from [employer]. Her is described as having poor insight into the patients deficits. TECHNIQUES UTILIZED: Clinical interview, review of medical records, staff consultation and behavioral observation, mini mental status exam 2 standard version, verbal fluency assessment (letter and category) and family interview -- and both daughters. [facility] [address] [place] [address] CONSULTATION Name: JETHRO ESTRELLA Room #: 506-1 [facility] IN M.R.#: [id number] Admission: 01/06/19 ������������������ Attend Phys: Miguel A Richey MD Discharge: ������������������ Date of : 43 Report #: [id number] EXAMINATION FINDINGS: The patient was alert and cooperative with the assessment. She was tangential and very talkative during the interview and went into great detail describing the sequence of events prior to her hospitalization. Suggested is a confabulation as well as tangential ideation. She describes symptoms to include left neglect, increased emotionality with tearfulness, anxiety and increased irritability as she is frustrated more easily. Increased anxiety from concern about a followup carotid endarterectomy is also described. Her performance on the MMSE 2 brief version is within normal limits with a raw score of 14/16. She was 2/3 for initial registration, 5/5 for orientation to time and place and 2/3 for immediate recall of 3 items after a brief time delay and distraction. Performance on the MMSE 2 standard version was within normal limits with a raw score 27/30. The patient had difficulty with copying a simple geometric design. Everything else was within normal limits including serial 7's. Letter fluency is in the low average range with a raw score of 17, T score of 39, percentile rank of 14. Category fluency is in the borderline range with a raw score of 26, T score of 31, percentile rank of 3. Overall, total fluency has T score of 35 at the 7th percentile, which is in the borderline range. Clock drawing was within normal limits. The patient is presenting with behavioral/emotional symptoms secondary to her CVA. Impulsivity, decreased social pragmatics, varibility of attention/concentration and disorientation to time is described by family. Decreased verbal fluency suggests higher level deficits in planning and problem solving as well as thought organization. DIAGNOSTIC IMPRESSION: Vascular neurocognitive disorder, with impulsivity, decreased insight and irritability and emotional lability -- extent to be determined, likely in the mild range. Unspecified anxiety disorder. RECOMMENDATIONS: Speech therapy with an emphasis on the identification of deficits and compensatory strategies to avoid safety issues. The use of distraction and redirection can be utilized to reduce emotional lability. Impulsivity can be managed by encouraging the person to plan out responses prior to action. Strategies of anticipating time can also be used to improve attention. [address] [address] CONSULTATION Name: MICHELA ESTRELLASURYA Blanco Room #: 506-1 [facility] IN M.R.#: [id number] Admission: 01/06/19 ������������������ Attend Phys: Miguel A Richey MD Discharge: ������������������ Date of : 43 Report #: [id number] Her daughters have expressed concern regarding her 's level of cognition as indicated earlier. I suggested they talk with their father and primary care doctor for a more thorough workup to address potential neurocognitive deficits. A followup neuropsych assessment may be of benefit to clarify the severity of cognitive deficits upon her discharge home. Thank you very much for allowing me to provide the consultation on this patient. ��������������������������������������������� <ELECTRONICALLY SIGNED> ���������������������������������������� By: Omar Connors, PhD ��������������������������������������������� 01/10/19 0626 [id number] Omar Connors, PhD /nt
[2019-01-10 08:00] VITALS: BP 128/66
--- NOTE | 2019-01-10 09:58 | NUR ---
ASSUMED CARE AT 0700. PATIENT IS ALERT AND ORIENTED, BUT FORGETFUL AND SOME IMPULSIVENESS. PATIENT VENTURA'S, STOVE POLISHER ARE EQUAL. PATIENT IS SBA WITH GAIT BELT. UP AT BEDSIDE FOR MEALS. FAMILY AT BEDSIDE. PATIENT HAS S.L. IN HER LEFT AC. FALL AND SAFETY PROTOCOLS IN PLACE. DENIES ANY PAIN AT THIS TIME. WILL CONTINUE TO MONITER.
--- NOTE | 2019-01-10 13:30 | NUR ---
team meeting, recommendation: dc 10th, needs supervision of medication and bills, family training while here. 24 hr initial supervision. hh (pt, ot, st and nursing). will cont following as needed for dc needs.
[2019-01-10 20:04] VITALS: BP 132/63
--- NOTE | 2019-01-11 03:06 | NUR ---
assumed care at approx 1900 evening 01/10. pt alert and oriented x4, visiting with family at bedside at change of shift. family left approx 2100. pt wants to be up on her own in room and stated she felt she was fine doing that. advised pt to discuss with physician in am to see if she can be modified independent in her room. pt is steady on her feet however advised pt she still needs to call for help and bed alarm will be set until she is cleared to be up on her own. pt appears to be sleeping soundly with hourly rounding checks. bed alarm on and call light in reach. will continue to monitor.
[2019-01-11 08:33] VITALS: BP 146/87
--- NOTE | 2019-01-11 12:54 | NUR ---
cm notified that pt dc date change to Wednesday per physician. pt and family cont look at hh list choice. cm notified that daughter ibrahima wanted to speak about dc question per speech. cm spoke with ibrahima [phone] " getting some push back from dad and mom that dad will be 24hour supervision and need some reinforcement on this from social work msw and . family wanting to stay and help out, what to do if someone getting easily alz maybe dad, might need some help wants home, would like sw with hh"/ibrahima. education on senior blue book and day programs for her pt . will cont following as needed for dc needs.
--- NOTE | 2019-01-11 14:02 | NUR ---
Patient participated in community reintegration on 01/11/19 with PHYSICAL THERAPY. Refer to documentation by PHYSICAL THERAPY.
--- NOTE | 2019-01-11 18:24 | NUR ---
ASSUMED CARE OF PT AT 0715. PT IS A&OX4 WITH PERIODS OF FORGETFULLNESS, VITAL SIGNS ARE STABLE. PATIENT TAKES MEDICAIONS WHOLE WITH THIN LIQUIDS, NO COMPLAINTS OF PAIN AND PARTICIPATED IN SCHEDULED THERAPIES. PT AMBULATES AND TRANSFERS WITH 1 PERSON STANDBY ASSIST WITH GAIT BELT. PT HAD MRI THIS AFTERNOON TO EVALUATE STATUS OF HEMORRHAGIC STROKE. PT ON CONTACT PRECAUTIONS FOR MRSA OF NARES, NURSING WILL CONTINUE PRECAUTIONS. FALL PRECAUTIONS IN PLACE AND NURSING WILL CONTINUE TO MONITOR.
[2019-01-11 19:23] VITALS: BP 152/62
--- NOTE | 2019-01-12 03:46 | NUR ---
UP IN RECLINER CHAIR STATING THAT HER SHOULDER GETS SORE WHEN SHE LAYS IN A BED TOO LONG. TYLENOL FOR THAT AND HEADACHE AT THIS TIME. LOOKING FORWARD TO HAVING DISCUSSION WITH DR MUNOZ AND FAMILY CONCERNING WHETHER OR NOT TO TAKE ASPIRIN AND PLAVIX IN LIGHT OF MRI RESULTS.
[2019-01-12 09:00] VITALS: BP 147/68
[2019-01-12] MEDS ORDERED: HYDROCORTISONE10 MG PO ×2 (12:02)
--- NOTE | 2019-01-12 14:20 | NUR ---
cm visited with pt and at bedside, education and support at home from family and will lessen fatigued will get if tries to do everything at home and for his " oh we know are kids going to stay with us for a while. hh picked was katy swenson, thank you"/pt. referral sent to [facility] and they able to accept for hh at [place].
[2019-01-12 14:49] VITALS: BP 147/68
--- NOTE | 2019-01-12 15:09 | NUR ---
Nutrition: Met with pt and dtrs to review heart healthy diet guidelines, modest protein intake due to single kidney. Discussed and answered questions, provided handout, RD name/#. Expect compliance.
--- NOTE | 2019-01-12 19:38 | NUR ---
assumed care at approx 0715. patient a/o x4. c/o back pain. medicated for pain per orders. fall precautions and contact isolation precautions in place. patient's daughters asked to speak to neurologist, neurologist called, physician spoke to daughters over the phone. discharge questions answered. discharge planned for tomorrow. patient resting in recliner at change of shift, family at bedside.
[2019-01-12 20:16] VITALS: BP 149/72
--- NOTE | 2019-01-13 02:10 | NUR ---
IN RECLINER CHAIR UNTIL MIDNIGHT, RESTING QUIETLY IN BED NOW. STATES ONLY TAKES TYLENOL FOR HEAD, NECK, AND/OR SHOULDER PAINS, DOES NOT WANT TYLENOL AT THIS POINT.
[2019-01-13 08:49] VITALS: BP 119/60
--- NOTE | 2019-01-13 10:51 | NUR ---
pt to dc home today with chcs ( pt, ot, st, nursing and sw ).
[2019-01-13 11:33] VITALS: BP 147/68
[2019-01-13 11:39] VITALS: BP 147/68
[2019-01-13 13:51] VITALS: BP 147/68
--- NOTE | 2019-01-13 15:19 | NUR ---
ASSUMED CARE AT APPROX 0715. PATIENT A/O X4. DENIES PAIN. VSS. CT SCAN ORDERED OF HEAD PER NEUROLOGY. DR. LANGLEY STATED HE WOULD DISCUSS RESULTS WITH FAMILY OUTPATIENT. PATIENT'S FAMILY TO SCHEDULE MRI PRIOR TO VISIT WITH NEUROLOGY. PATIENT'S DAUGHTER SPOKE DIRECTLY TO NEUROLOGIST TO DISCUSS FOLLOW UP ORDERS. DISCHARGE MEDICATION ORDERS REVEIWED, PATIENT'S QUESTIONS ANSWERED. HOME MED CRESTOR RETURNED. STROKE EDUCATION PROVIDED. REINFORCED EDUCATION REGARDING SUPERVISION WITH HIGHER LEVEL FUNCTIONING AND MEDICATION MANAGEMENT. FALL PRECAUTIONS IN PLACE. CONTACT ISOLATION PRECAUTIONS IN PLACE. PATIENT ESCORTED OFF UNIT FOR DC PER STAFF IN . PATIENT'S AND DAUGHTER WITH PATIENT AT TIME OF DC.
== END 2019-01-13 14:54 | disposition home health service (06) | DRG 64 ==
LOC: ENTRNSPT 01-13 14:49
PROVIDERS: ADMIT Physical Medicine & Rehabilitation
DX: I63.511 Cerebral infarction due to unspecified occlusion or stenosis of right middle cerebral artery (principal); I61.9 Nontraumatic intracerebral hemorrhage, unspecified; I63.231 Cerebral infarction due to unspecified occlusion or stenosis of right carotid arteries; N39.0 Urinary tract infection, site not specified; E27.40 Unspecified adrenocortical insufficiency; R41.4 Neurologic neglect syndrome; G81.94 Hemiplegia, unspecified affecting left nondominant side; R53.1 Weakness; R47.81 Slurred speech; E03.9 Hypothyroidism, unspecified; M81.0 Age-related osteoporosis without current pathological fracture; E78.5 Hyperlipidemia, unspecified; B96.1 Klebsiella pneumoniae [K. pneumoniae] as the cause of diseases classified elsewhere; R41.9 Unspecified symptoms and signs involving cognitive functions and awareness; F41.9 Anxiety disorder, unspecified; Z96.612 Presence of left artificial shoulder joint; I73.9 Peripheral vascular disease, unspecified; B95.62 Methicillin resistant Staphylococcus aureus infection as the cause of diseases classified elsewhere; F03.90 Unspecified dementia, unspecified severity, without behavioral disturbance, psychotic disturbance, mood disturbance, and anxiety; Z90.5 Acquired absence of kidney; Z79.899 Other long term (current) drug therapy; Z88.8 Allergy status to other drugs, medicaments and biological substances; Z87.891 Personal history of nicotine dependence; Z79.52 Long term (current) use of systemic steroids; Z88.6 Allergy status to analgesic agent
CPT/HCPCS: 10112

== ENCOUNTER 2019-11-19 11:56 | Emergency (ER) | payer OTHER ==
[~2019-11-19] VITALS: Ht 152.4 cm; Wt 74.8 kg
[~2019-11-19 11:56] MED LIST changes: +CEFUROXIME250 MG PO; +HYDROCORTISONE10 MG PO
[2019-11-19 12:12] LABS: URINE BILIRUBIN NEGATIVE (Negative); URINE BLOOD NEGATIVE (Negative); URINE CLARITY CLEAR; URINE COLOR YELLOW; URINE GLUCOSE-RANDOM* NEGATIVE (Negative); URINE KETONES NEGATIVE (Negative); URINE LEUKOCYTES-REFLEX TRACE (Negative); URINE NITRITE-REFLEX NEGATIVE (Negative); URINE PROTEIN (DIPSTICK) NEGATIVE (Negative); URINE UROBILINOGEN 0.2 E.U./dl (0.2-1.0)
[2019-11-19 12:26] LABS: ABSOLUTE NEUTROPHILS 6.4 thou/uL (1.4-8.2); BASOPHILS 0.8 % (0.0-2.0); EOSINOPHILS 3.5 % (0.0-3.0); HEMATOCRIT 40.9 % (37.0-47.0); HEMOGLOBIN 13.6 gm/dL (12.0-15.0); LYMPHOCYTES 19.1 % (24.0-44.0); MCH 30.9 pg (26.0-34.0); MCHC 33.3 g/dL (28.0-37.0); MCV 92.8 fL (80.0-100.0); MONOCYTES 5.8 % (1.0-8.0); PLATELET COUNT 317 thou/uL (150-400); POLYS 70.8 % (36.0-66.0); RBC 4.41 mil/uL (4.20-5.00); RDW 16.7 % (10.5-14.5)
[2019-11-19 12:34] LABS: CALCIUM 9.2 mg/dL (8.5-10.1); POTASSIUM 3.2 mmol/L (3.5-5.1)
[2019-11-19 12:40] LABS: ALBUMIN 3.9 g/dL (3.4-5.0); TOTAL BILIRUBIN 0.7 mg/dL (<0.1-1.0); TOTAL PROTEIN 7.8 g/dL (6.4-8.2)
[2019-11-19] MEDS ORDERED: NORCO 5-325 TA1 EAC1 PO (12:58)
[2019-11-19] MEDS ORDERED: LIDOCAINE1 EACH TRANSDERM (12:58)
[2019-11-19 12:59] VITALS: BP 178/79
[2019-11-19] MEDS ORDERED: POTASSIUM20 PO (13:06)
[2019-11-23] MEDS ORDERED: ADULT ASPIRIN R81 MG PO (09:56)
[2019-11-23] MEDS ORDERED: CORTEF 20 MG TA20 MG PO (10:00)
[2019-11-23] MEDS ORDERED: CORTEF 20 MG TA20 M1 PO (10:01)
[2019-11-23] MEDS ORDERED: LEVO-T75 MCG PO (10:02)
[2019-11-23] MEDS ORDERED: PEPCID20 MG PO (10:03)
[2019-11-23] MEDS ORDERED: COQ-1030 MG PO (10:04)
== END 2019-11-19 13:10 | disposition home or self-care (01) ==
LOC: ER 11:56
PROVIDERS: Physician Assistant
DX: R07.89 Other chest pain (principal); M54.6 Pain in thoracic spine; R05 Cough; R35.0 Frequency of micturition; E87.6 Hypokalemia; E03.9 Hypothyroidism, unspecified; M81.0 Age-related osteoporosis without current pathological fracture; Z79.899 Other long term (current) drug therapy; Z88.6 Allergy status to analgesic agent

== ENCOUNTER → 2019-11-22 | Outpatient (CLI) | payer OTHER ==
[~2019-11-22] MED LIST changes: +ADULT ASPIRIN R81 MG PO; +COQ-1030 MG PO; +CORTEF 20 MG TA20 M1 PO; +CORTEF 20 MG TA20 MG PO; +LEVO-T75 MCG PO; +LIDOCAINE1 EACH TRANSDERM; +NORCO 5-325 TA1 EAC1 PO; +PEPCID20 MG PO; +POTASSIUM20 PO
== END ==
LOC: MRI 09:44
DX: M48.54XA Collapsed vertebra, not elsewhere classified, thoracic region, initial encounter for fracture (principal)

== ENCOUNTER → 2019-11-23 | Outpatient (CLI) | payer OTHER ==
[~2019-11-23] VITALS: Ht 152.4 cm; Wt 72.6 kg
[2019-11-23 09:42] VITALS: BP 144/56; BP 169/68
[2019-11-23 12:48] VITALS: BP 139/73
--- NOTE | 2019-11-23 15:02 | NUR ---
LATE ENTRY 1330 PT RESTING COMFORTABLEY, BANDAID INTACT. VSS. DRINKING SODA AND EATING CRACKERS. AT BEDSIDE. HOB ELEVATED 20 DEGREES 1430 PT UP AND AMBULATES DOWN SCOTT. STATES PAIN GREATLY IMPROVED FROM PROCEDURE. DRESSING CLEAN DRY INTACT. DC'D WITH THOROUGH F/U INST TO PT AND SPOUSE. VERBALIZE UNDERSTANDING
== END ==
LOC: CATH 08:54
DX: M54.9 Dorsalgia, unspecified (principal); M80.08XA Age-related osteoporosis with current pathological fracture, vertebra(e), initial encounter for fracture; E03.9 Hypothyroidism, unspecified; E78.5 Hyperlipidemia, unspecified; K21.9 Gastro-esophageal reflux disease without esophagitis; Z98.890 Other specified postprocedural states; Z79.899 Other long term (current) drug therapy; Z86.73 Personal history of transient ischemic attack (TIA), and cerebral infarction without residual deficits; Z90.5 Acquired absence of kidney; Z87.891 Personal history of nicotine dependence; Z88.8 Allergy status to other drugs, medicaments and biological substances

== ENCOUNTER → 2019-12-12 | Outpatient (CLI) | payer OTHER | LOC: SJCVC 10:39 | DX: M80.08XA Age-related osteoporosis with current pathological fracture, vertebra(e), initial encounter for fracture (principal); T38.0X5A Adverse effect of glucocorticoids and synthetic analogues, initial encounter; E78.2 Mixed hyperlipidemia; I73.9 Peripheral vascular disease, unspecified; I63.411 Cerebral infarction due to embolism of right middle cerebral artery; M19.90 Unspecified osteoarthritis, unspecified site; Z87.891 Personal history of nicotine dependence; Z79.82 Long term (current) use of aspirin; Z79.899 Other long term (current) drug therapy; Y92.89 Other specified places as the place of occurrence of the external cause ==

== ENCOUNTER → 2020-01-24 | Outpatient (CLI) | payer OTHER ==
[~2020-01-24] MED LIST changes: +CELEXA 20 MG TA20 MG PO
== END ==
LOC: SJCVC 11:13
PROVIDERS: ATTEND Nuclear Medicine Nuclear Cardiology
DX: M80.08XA Age-related osteoporosis with current pathological fracture, vertebra(e), initial encounter for fracture (principal); T38.0X5A Adverse effect of glucocorticoids and synthetic analogues, initial encounter; I73.9 Peripheral vascular disease, unspecified; E23.0 Hypopituitarism; E78.2 Mixed hyperlipidemia; I63.411 Cerebral infarction due to embolism of right middle cerebral artery; F17.210 Nicotine dependence, cigarettes, uncomplicated; Z79.899 Other long term (current) drug therapy; X58.XXXA Exposure to other specified factors, initial encounter; Y93.89 Activity, other specified; Y92.89 Other specified places as the place of occurrence of the external cause; Y99.8 Other external cause status

== ENCOUNTER → 2020-01-24 | Outpatient (CLI) | payer OTHER | LOC: MRI 11:22 | PROVIDERS: ATTEND Nuclear Medicine Nuclear Cardiology | DX: M50.122 Cervical disc disorder at C5-C6 level with radiculopathy (principal); M51.25 Other intervertebral disc displacement, thoracolumbar region; M48.54XA Collapsed vertebra, not elsewhere classified, thoracic region, initial encounter for fracture ==

== ENCOUNTER → 2020-01-25 | Outpatient (CLI) | payer OTHER ==
[~2020-01-25] MED LIST changes: -CELEXA 20 MG TA20 MG PO
[2020-01-25 07:39] LABS: HEMATOCRIT 39.2 % (37.0-47.0); MCH 30.9 pg (26.0-34.0); MCHC 33.2 g/dL (28.0-37.0); MCV 93.2 fL (80.0-100.0); RBC 4.21 mil/uL (4.20-5.00); RDW 15.3 % (10.5-14.5); WBC 9.4 thou/uL (4.0-11.0)
== END | disposition home or self-care (01) ==
LOC: CATH 06:46
PROVIDERS: ATTEND Nuclear Medicine Nuclear Cardiology
DX: M54.9 Dorsalgia, unspecified (principal); M80.08XA Age-related osteoporosis with current pathological fracture, vertebra(e), initial encounter for fracture; M19.90 Unspecified osteoarthritis, unspecified site; E03.9 Hypothyroidism, unspecified; E78.2 Mixed hyperlipidemia; Z98.890 Other specified postprocedural states; Z79.899 Other long term (current) drug therapy; Z86.73 Personal history of transient ischemic attack (TIA), and cerebral infarction without residual deficits; Z87.891 Personal history of nicotine dependence; Z90.49 Acquired absence of other specified parts of digestive tract

== ENCOUNTER → 2020-02-16 | Outpatient (CLI) | payer OTHER | LOC: MRI 14:18 | PROVIDERS: ATTEND Nuclear Medicine Nuclear Cardiology | DX: G95.29 Other cord compression (principal); M54.9 Dorsalgia, unspecified; Z98.890 Other specified postprocedural states ==

== ENCOUNTER → 2020-02-20 | Outpatient (CLI) | payer OTHER ==
[~2020-02-20] VITALS: Ht 152.4 cm; Wt 67.1 kg
[~2020-02-20] MED LIST changes: +CELEXA 20 MG TA20 MG PO
[2020-02-20 06:59] VITALS: BP 157/75
== END | disposition home or self-care (01) ==
LOC: CATH 06:32
PROVIDERS: ATTEND Nuclear Medicine Nuclear Cardiology
DX: M54.9 Dorsalgia, unspecified (principal); M80.08XA Age-related osteoporosis with current pathological fracture, vertebra(e), initial encounter for fracture; E03.9 Hypothyroidism, unspecified; E78.5 Hyperlipidemia, unspecified; Z98.890 Other specified postprocedural states; Z79.899 Other long term (current) drug therapy; Z86.73 Personal history of transient ischemic attack (TIA), and cerebral infarction without residual deficits; Z90.5 Acquired absence of kidney; Z79.52 Long term (current) use of systemic steroids

== ENCOUNTER → 2020-03-05 | Outpatient (CLI) | payer OTHER | LOC: SJCVC 13:16 | PROVIDERS: ATTEND Nuclear Medicine Nuclear Cardiology | DX: M80.08XG Age-related osteoporosis with current pathological fracture, vertebra(e), subsequent encounter for fracture with delayed healing (principal); T38.0X5A Adverse effect of glucocorticoids and synthetic analogues, initial encounter; I73.9 Peripheral vascular disease, unspecified; I63.411 Cerebral infarction due to embolism of right middle cerebral artery; E78.2 Mixed hyperlipidemia; Z79.899 Other long term (current) drug therapy; Z87.891 Personal history of nicotine dependence; X58.XXXA Exposure to other specified factors, initial encounter; Y93.89 Activity, other specified; Y92.89 Other specified places as the place of occurrence of the external cause; Y99.8 Other external cause status ==

== ENCOUNTER → 2020-07-29 | Outpatient (CLI) | payer OTHER | LOC: SJCVCIMAG 06:30 → CATH 06:31 → MRI 09:00 → CATH 12:34 | PROVIDERS: ATTEND Nuclear Medicine Nuclear Cardiology | DX: M51.25 Other intervertebral disc displacement, thoracolumbar region (principal); M48.54XA Collapsed vertebra, not elsewhere classified, thoracic region, initial encounter for fracture ==

== ENCOUNTER → 2020-08-12 | Outpatient (CLI) | payer OTHER ==
[~2020-08-12] VITALS: Ht 154.9 cm; Wt 72.6 kg
[2020-08-12 07:23] VITALS: BP 173/78
[2020-08-12 08:15] LABS: POTASSIUM 3.4 mmol/L (3.5-5.1)
[2020-08-12 08:26] LABS: HEMATOCRIT 37.3 % (37.0-47.0); MCH 29.1 pg (26.0-34.0); MCHC 32.1 g/dL (28.0-37.0); MCV 90.5 fL (80.0-100.0); RBC 4.12 mil/uL (4.20-5.00); RDW 15.6 % (10.5-14.5); WBC 11.5 thou/uL (4.0-11.0)
== END | disposition home or self-care (01) ==
LOC: CATH 07:00
PROVIDERS: ATTEND Nuclear Medicine Nuclear Cardiology
DX: M54.9 Dorsalgia, unspecified (principal); M80.08XA Age-related osteoporosis with current pathological fracture, vertebra(e), initial encounter for fracture; E03.9 Hypothyroidism, unspecified; Z98.890 Other specified postprocedural states; Z79.899 Other long term (current) drug therapy; Z86.73 Personal history of transient ischemic attack (TIA), and cerebral infarction without residual deficits; Z90.5 Acquired absence of kidney; Z88.8 Allergy status to other drugs, medicaments and biological substances

== ENCOUNTER → 2020-10-03 | Outpatient (CLI) | payer OTHER | LOC: NUC 09-18 11:06 | PROVIDERS: ATTEND Neuromusculoskeletal Medicine & OMM | DX: M81.0 Age-related osteoporosis without current pathological fracture (principal) ==

== ENCOUNTER 2020-12-31 12:19 | Emergency (ER) | payer OTHER ==
[~2020-12-31] VITALS: Ht 154.9 cm; Wt 74.8 kg
--- NOTE | ~2020-12-31 | EMS ---
[address] [address] EMS Patient Care Report Name: JETHRO ESTRELLA Room #: REG TIERA Hassan#: [id number] Admission: 12/31/20 Attend Phys: Discharge: Date of : 41 Report #: [id number] THIS REPORT FOR: //name// Report Transmitted: 12/31/2020 13:57 EMS Care Summary [place], [place]/[facility] Incident [id number] @ 12/31/2020 11:38 Incident Location [address] [place] [address] Patient JETHRO ESTRELLA Female, 75 Years 1945 Patient Address [address] [place] [id number] Patient History Stroke/CVA, Patient Allergies Codeine, Patient Medications Other, Chief Complaint syncope Disposition Transported No Lights/[place] Dispatch Reason Stroke/CVA Transported To [facility] Med 551 was dispatched to a stroke. Upon arrival on scene car 120 gave EMS a report that the patient had a syncopal episode while eating brunch, she had laid her head down on the table and did [facility] [address] [place] [address] EMS Patient Care Report Name: JETHRO ESTRELLA Room #: REG [facility]#: [id number] Admission: 12/31/20 Attend Phys: Discharge: Date of : 41 Report #: [id number] not collapse. The patient was found sitting in a chair awake, alert and oriented x 4, and with no complaints. The patient didn't appear to be in any distress. Family wished for her to be evaluated at the ER and so she agreed and was moved to the stretcher, strapped in with the seatbelts, and taken to the ambulance. During transport vitals were monitored and a report was called in to the hospital. Upon arrival at the hospital the patient was taken inside and moved to the hospital bed. A report was given to staff and care was transferred. Med 551 then returned to service. Initial Vitals @12:00P: 90,R: 14,SpO2: 95, @11:55P: 89,R: 18,BP: 95/61,Pain: 0/10,GCS: 15,Glucose: 127,SpO2: 95,Revised Trauma: 12, @12:11P: 89,R: 18,BP: 109/67,Pain: 0/10,GCS: 15,SpO2: 96,Revised Trauma: 12, Assessments @11:49MENTAL:Time Oriented,Person Oriented,Event Oriented,Place Oriented,SKIN:HEENT:LUNG SOUNDS:General: No Abnormalities,ABDOMEN:General: No Abnormalities,PELVIS//GI:No Abnormalities,EXTREMITIES:Capillary Refill: Left Upper: < 2 Sec,Capillary Refill: Right Upper: < 2 Sec,Left Arm: No Abnormalities,Right Arm: No Abnormalities,Left Leg: No Abnormalities,Right Leg: No Abnormalities,PULSE:Radial: 2+ Normal,NEURO:@12:08MENTAL:Time Oriented,Place Oriented,Event Oriented,Person Oriented,SKIN:HEENT:Eyes: No Abnormalities,Neck/Airway: No Abnormalities,LUNG SOUNDS:General: No Abnormalities,ABDOMEN:General: No Abnormalities,PELVIS//GI:No Abnormalities,EXTREMITIES:Capillary Refill: Left Upper: < 2 Sec,Capillary Refill: Right Upper: < 2 Sec,Left Arm: No Abnormalities,Right Arm: No Abnormalities,Left Leg: No Abnormalities,Right Leg: No Abnormalities,PULSE:Radial: 2+ Normal,NEURO: Impression Syncope / Fainting Procedures @11:49ALS AssessmentResponse: UnchangedSucceeded@12:003-Lead ECGResponse: UnchangedSucceeded Timeline 11:37,Call Received 11:37,Dispatch Notified 11:38,Dispatched 11:38,En Route 11:48,On Scene 11:49,At Patient 11:49,ALS Assessment,Response: UnchangedSucceeded, 11:55,BP: 95/61 M,PULSE: 89,RR: 18 R,SPO2: 95 Ox,ETCO2: ,B,PAIN: 0,GCS: [address] [address] EMS Patient Care Report Name: JETHRO ESTRELLA Room #: REG Sonya#: [id number] Admission: 12/31/20 Attend Phys: Discharge: Date of : 41 Report #: [id number] 15, 11:58,Depart Scene 12:00,3-Lead ECG,Response: UnchangedSucceeded, 12:00,BP: / M,PULSE: 90,RR: 14 R,SPO2: 95 Ox,ETCO2: ,BG: ,PAIN: ,GCS: , 12:11,BP: 109/67 M,PULSE: 89,RR: 18 R,SPO2: 96 Ox,ETCO2: ,BG: ,PAIN: 0,GCS: 15, 12:14,At Destination 12:33,Call Closed Disclaimer [email or web address] Copyright 2020 [employer] This EMS Care Summary contains data elements from the applicable legal record (which may be displayed differently). It is designed to provide pertinent information for the following purposes: continuity of care, clinical quality, and state data reporting. The complete legal record is available to ED staff and administrators of the receiving hospital in [employer]'s Patient Tracker. All data is provided "as is."
[2020-12-31 13:09] LABS: ABSOLUTE NEUTROPHILS 4.7 thou/uL (1.4-8.2); BASOPHILS 3.1 % (0.0-2.0); EOSINOPHILS 7.2 % (0.0-3.0); HEMATOCRIT 37.9 % (37.0-47.0); HEMOGLOBIN 12.3 gm/dL (12.0-15.0); LYMPHOCYTES 28.7 % (24.0-44.0); MCH 28.7 pg (26.0-34.0); MCHC 32.4 g/dL (28.0-37.0); MCV 88.4 fL (80.0-100.0); MONOCYTES 9.2 % (1.0-8.0); PLATELET COUNT 287 thou/uL (150-400); POLYS 51.8 % (36.0-66.0); RBC 4.29 mil/uL (4.20-5.00); RDW 15.6 % (10.5-14.5); WBC 9.2 thou/uL (4.0-11.0)
[2020-12-31 13:14] LABS: ANION GAP 10 mmol/L (7-16); BUN 8 mg/dL (7-18); CHLORIDE 105 mmol/L (98-107); CO2 28 mmol/L (21-32); CREATININE 1.2 mg/dL (0.6-1.0); GLUCOSE 117 mg/dL (74-106); POTASSIUM 3.1 mmol/L (3.5-5.1); SODIUM 143 mmol/L (136-145)
[2020-12-31 13:25] LABS: ALBUMIN 3.5 g/dL (3.4-5.0); SGOT 25 U/L (15-37); SGPT 21 U/L (14-59); TOTAL BILIRUBIN 0.5 mg/dL (0.2-1.0); TOTAL PROTEIN 7.2 g/dL (6.4-8.2); TROPONIN-I <0.06 ng/mL (<0.06)
--- NOTE | 2020-12-31 14:40 | EKG ---
[place] [address] [facility] [place] [address] ELECTROCARDIOGRAM REPORT Name: MICHELA ESTRELLALL Francis [id number] Admission: 12/31/20 Attend Phys: Discharge: Date of : 41 Report #: [id number] [facility] ED Test Date: 2020-12-31 Test Time: 12:34:58 Pat Name: JETHRO ESTRELLA Department: Room: Gender: F Type Inspector: MARY : 1945 Requested By: Silvia Diez Order Number: [id number] MD: Michael Banegas Measurements Intervals [place] Rate: 77 P: 47 IN: 136 QRS: -8 QRSD: 84 T: 72 QT: 468 QTc: 530 Interpretive Statements Sinus rhythm Consider left atrial enlargement Left ventricular hypertrophy Inferior infarct, old Anterior infarct, old Lateral leads are also involved Prolonged QT interval Compared to ECG 01/03/2019 12:06:01 Left ventricular hypertrophy now present Prolonged QT interval now present Myocardial infarct finding still present Electronically Signed On 12-31-2020 14:40:42 CDT by Michael Banegas [email or web address] <ELECTRONICALLY SIGNED> By: Michael Banegas MD, [facility] 12/31/20 4610 1234 1234 Michael Banegas MD, [facility] /EPI
[2020-12-31 15:06] LABS: URINE BILIRUBIN NEGATIVE (Negative); URINE BLOOD TRACE (Negative); URINE CLARITY CLEAR; URINE COLOR YELLOW; URINE GLUCOSE-RANDOM* NEGATIVE (Negative); URINE KETONES NEGATIVE (Negative); URINE NITRITE-REFLEX NEGATIVE (Negative); URINE PROTEIN (DIPSTICK) NEGATIVE (Negative); URINE SPECIFIC GRAVITY <= 1.005 (1.005-1.035); URINE UROBILINOGEN 0.2 E.U./dl (0.2-1.0)
[2020-12-31 15:07] LABS: URINE LEUKOCYTES-REFLEX 3+ (Negative)
[2020-12-31 15:12] LABS: CASTS None Seen /LPF (None Seen); SQUAMOUS None Seen /LPF (0-3)
[2020-12-31 15:13] LABS: CRYSTALS None Seen /LPF (None Seen); URINE RBC 1-2 Rare /HPF (NONE SEEN); URINE WBC-REFLEX >25 Many /HPF (0-5)
[2020-12-31 16:39] VITALS: BP 149/68
[2020-12-31] MEDS ORDERED: CEPHALEXIN500 MG PO (16:39)
== END 2020-12-31 16:42 | disposition home or self-care (01) ==
LOC: ER 12:19
PROVIDERS: Emergency Medicine
DX: R55 Syncope and collapse (principal); Z91.14 Patient's other noncompliance with medication regimen; E86.0 Dehydration; N39.0 Urinary tract infection, site not specified; E03.9 Hypothyroidism, unspecified; E78.5 Hyperlipidemia, unspecified; M81.0 Age-related osteoporosis without current pathological fracture; I25.10 Atherosclerotic heart disease of native coronary artery without angina pectoris; Z86.73 Personal history of transient ischemic attack (TIA), and cerebral infarction without residual deficits; Z90.5 Acquired absence of kidney; Z90.49 Acquired absence of other specified parts of digestive tract; Z98.890 Other specified postprocedural states; Z79.899 Other long term (current) drug therapy; Z79.82 Long term (current) use of aspirin; Z88.5 Allergy status to narcotic agent